=== PATIENT | female | born 1945 | race Two or more races ===

== ENCOUNTER 2017-10-23 12:19 | Outpatient (CLI) | payer OTHER | END 2017-10-23 12:32 | disposition home or self-care (01) | LOC: RAD 12:19 | DX: M54.2 Cervicalgia (principal); Z96.643 Presence of artificial hip joint, bilateral ==

== ENCOUNTER 2018-05-20 13:07 | Outpatient (CLI) | payer OTHER | END 2018-05-20 14:27 | disposition home or self-care (01) | LOC: RAD 13:07 | DX: S80.01XA Contusion of right knee, initial encounter (principal) ==

== ENCOUNTER 2018-07-08 15:28 | Outpatient (CLI) | payer OTHER | END 2018-07-08 15:35 | disposition home or self-care (01) | LOC: RAD 15:28 | DX: Z96.642 Presence of left artificial hip joint (principal) ==

== ENCOUNTER 2018-12-30 14:44 | Outpatient (CLI) | payer OTHER | END 2018-12-30 14:48 | disposition home or self-care (01) | LOC: RAD 14:44 | DX: M15.8 Other polyosteoarthritis (principal) ==

== ENCOUNTER 2019-09-04 11:04 | Outpatient (CLI) | payer OTHER | END 2019-09-04 11:13 | disposition home or self-care (01) | LOC: MAMO-SONO 11:04 | PROVIDERS: ATTEND Family Medicine | DX: Z12.31 Encounter for screening mammogram for malignant neoplasm of breast (principal); Z87.898 Personal history of other specified conditions; N60.11 Diffuse cystic mastopathy of right breast; N60.12 Diffuse cystic mastopathy of left breast ==

== ENCOUNTER 2019-09-04 13:21 | Outpatient (CLI) | payer OTHER | END 2019-09-04 13:38 | disposition home or self-care (01) | LOC: NUCLEAR 13:21 | PROVIDERS: ATTEND Family Medicine | DX: M81.0 Age-related osteoporosis without current pathological fracture (principal) ==

== ENCOUNTER 2020-04-17 09:26 | Outpatient (CLI) | payer OTHER | END 2020-04-17 12:00 | disposition home or self-care (01) | LOC: PPH VACUNA 09:26 | PROVIDERS: ATTEND Emergency Medicine Pediatric Emergency Medicine | DX: Z23 Encounter for immunization (principal) ==

== ENCOUNTER 2020-07-24 11:03 | Emergency (ER) | payer OTHER ==
[~2020-07-24] VITALS: Ht 167.6 cm; Wt 73.5 kg
[2020-07-24] MEDS ORDERED: TOPROL XL25 M1 (11:24)
[2020-07-24] MEDS ORDERED: AVALIDE 300-121 EACH (11:24)
== END 2020-07-24 13:22 | disposition home or self-care (01) ==
LOC: ER 11:03
DX: S00.03XA Contusion of scalp, initial encounter (principal); W01.198A Fall on same level from slipping, tripping and stumbling with subsequent striking against other object, initial encounter; Y93.89 Activity, other specified; Y92.018 Other place in single-family (private) house as the place of occurrence of the external cause; Y99.8 Other external cause status

== ENCOUNTER 2020-10-06 14:02 | Emergency (ER) | payer OTHER ==
[~2020-10-06] VITALS: Ht 167.6 cm; Wt 73.5 kg
[~2020-10-06 14:02] MED LIST: AVALIDE 300-121 EACH; TOPROL XL25 M1
== END 2020-10-06 19:26 | disposition home or self-care (01) ==
LOC: ER 14:02
DX: R55 Syncope and collapse (principal)

== ENCOUNTER 2020-12-09 08:00 | Outpatient (CLI) | payer OTHER | END 2020-12-09 08:30 | disposition home or self-care (01) | LOC: PPH VACUNA 08:00 | DX: Z23 Encounter for immunization (principal) ==

== ENCOUNTER 2021-01-06 16:10 | Outpatient (CLI) | payer OTHER | END 2021-01-06 16:21 | disposition home or self-care (01) | LOC: RAD 16:10 | PROVIDERS: ATTEND Family Medicine | DX: M41.87 Other forms of scoliosis, lumbosacral region (principal); M54.16 Radiculopathy, lumbar region ==

== ENCOUNTER 2021-03-11 15:04 | Outpatient (CLI) | payer OTHER | END 2021-03-11 15:11 | disposition home or self-care (01) | LOC: RAD 15:04 | PROVIDERS: ATTEND Physical Medicine & Rehabilitation | DX: M25.561 Pain in right knee (principal); M25.562 Pain in left knee ==

== ENCOUNTER 2021-08-23 12:00 | Outpatient (CLI) | payer OTHER | END 2021-08-23 12:30 | disposition home or self-care (01) | LOC: PPH VACUNA 12:00 | PROVIDERS: ATTEND Emergency Medicine Pediatric Emergency Medicine | DX: Z23 Encounter for immunization (principal) ==

== ENCOUNTER → 2021-08-23 13:43 | Outpatient (CLI) | payer OTHER | END | disposition home or self-care (01) | LOC: LAB 13:43 | PROVIDERS: ATTEND Radiology Diagnostic Radiology | DX: R10.13 Epigastric pain (principal) ==

== ENCOUNTER 2021-08-31 09:24 | Outpatient (CLI) | payer OTHER | END 2021-08-31 09:28 | disposition home or self-care (01) | LOC: TOM 09:24 | PROVIDERS: ATTEND Internal Medicine Gastroenterology | DX: R10.13 Epigastric pain (principal); R10.33 Periumbilical pain; R63.4 Abnormal weight loss | CPT/HCPCS: 74178; Q9965 ==

== ENCOUNTER 2021-09-26 13:15 | Outpatient (CLI) | payer OTHER | END 2021-09-26 13:23 | disposition home or self-care (01) | LOC: RAD 13:15 | PROVIDERS: ATTEND Psychiatry & Neurology Psychiatry | DX: J20.9 Acute bronchitis, unspecified (principal) ==

== ENCOUNTER 2021-12-23 14:31 | Outpatient (CLI) | payer OTHER | END 2021-12-23 14:36 | disposition home or self-care (01) | LOC: PPH VACUNA 14:31 | PROVIDERS: ATTEND Emergency Medicine Pediatric Emergency Medicine | DX: Z23 Encounter for immunization (principal) ==

== ENCOUNTER → 2022-08-18 | Outpatient (CLI) | payer OTHER | END | disposition home or self-care (01) | LOC: PPH VACUNA | PROVIDERS: ATTEND Emergency Medicine Pediatric Emergency Medicine | DX: Z23 Encounter for immunization (principal) ==

== ENCOUNTER 2022-12-05 14:58 | Outpatient (CLI) | payer OTHER | END 2022-12-05 15:08 | disposition home or self-care (01) | LOC: RAD 14:58 | PROVIDERS: ATTEND Internal Medicine Rheumatology | DX: M15.8 Other polyosteoarthritis (principal); M25.562 Pain in left knee; M25.561 Pain in right knee ==

== ENCOUNTER 2023-02-20 09:16 | Emergency (ER) | payer OTHER ==
[~2023-02-20] VITALS: Ht 165.1 cm; Wt 73.5 kg
[2023-02-20] MEDS ORDERED: IRBESARTAN-HCT1 EACH (09:33)
[2023-02-20] MEDS ORDERED: GABAPENTIN300 M2 (09:34)
[2023-02-20] MEDS ORDERED: LEVOTHYROXINE50 MCG (09:34)
[2023-02-20] MEDS ORDERED: REMINYL4 MG (09:34)
[2023-02-20 10:59] LABS: HEMATOCRIT 36.1 % (36.0-45.00); HEMOGLOBIN 12.2 g/dL (12.0-15.00); MEAN CELL VOLUME 92.4 fL (80.00-100.00); MEAN CORPUSCULAR HEMOGLOBIN 31.3 pg (27.00-32.0); MEAN CORPUSCULAR HGB CONC 33.8 g/dl (32.0-36.0); PLATELET COUNT 238 K/uL (150-450); RED CELL DISTRIBUTION WIDTH 13.9 % (11.5-14.5)
[2023-02-20 11:17] LABS: INR 0.97; PARTIAL THROMBOPLASTIN TIME 32.4 SECONDS (22.0-34.0); PROTHROMBIN TIME 10.2 SECONDS (9.0-11.5)
[2023-02-20 11:22] LABS: URINE APPEARANCE Clear; URINE BILIRRUBIN Negative (NEGATIVE); URINE BLOOD Negative; URINE COLOR Yellow; URINE GLUCOSE Negative (NEGATIVE); URINE LEUKOCYTE Negative; URINE NITRATE Negative; URINE PROTEIN Negative (NEGATIVE)
[2023-02-20 11:25] LABS: URINE BACTERIA 32.7 uL (0.0-1933); URINE EPITHELIAL CELLS 4.1 uL (0.0-38.8); URINE WBC 5.7 uL (0.0-23.2)
[2023-02-20 11:53] LABS: ALBUMIN 3.6 gm/dL (3.4-5.0); BILIRUBIN TOTAL 0.85 mg/dL (0.3-1.2); CREATININE SERUM 0.82 mg/dL (0.55-1.02); GFR 67.42; GLOBULINA 3.1 G/DL (2.4-3.5); TOTAL PROTEIN 6.7 gm/dL (6.4-8.2)
== END 2023-02-20 17:28 | disposition home or self-care (01) ==
LOC: ER 09:16
PROVIDERS: Emergency Medicine
DX: M94.0 Chondrocostal junction syndrome [Tietze] (principal); R07.89 Other chest pain; I10 Essential (primary) hypertension

== ENCOUNTER 2023-10-15 12:23 | Outpatient (CLI) | payer OTHER, BC ==
[~2023-10-15 12:23] MED LIST changes: +GABAPENTIN300 M2; +IRBESARTAN-HCT1 EACH; +LEVOTHYROXINE50 MCG; +NORVASC2.5 M1 PO; +REMINYL4 MG
== END 2023-10-15 12:28 | disposition home or self-care (01) ==
LOC: TOM 12:23
PROVIDERS: ATTEND Internal Medicine Gastroenterology
DX: S09.90XA Unspecified injury of head, initial encounter (principal); S19.9XXA Unspecified injury of neck, initial encounter

== ENCOUNTER 2023-10-19 10:23 | Outpatient (CLI) | payer OTHER, BC | END 2023-10-19 10:31 | disposition home or self-care (01) | LOC: SONOGRAMA 10:23 | PROVIDERS: ATTEND Internal Medicine Gastroenterology | DX: M75.82 Other shoulder lesions, left shoulder (principal); R16.0 Hepatomegaly, not elsewhere classified ==

== ENCOUNTER 2024-01-03 10:52 | Outpatient (CLI) | payer OTHER | END 2024-01-03 13:17 | disposition home or self-care (01) | LOC: RAD 10:52 | PROVIDERS: ATTEND Family Medicine | DX: S20.212A Contusion of left front wall of thorax, initial encounter (principal); S20.00XA Contusion of breast, unspecified breast, initial encounter ==

== ENCOUNTER 2024-01-15 13:16 | Outpatient (CLI) | payer OTHER | END 2024-01-15 13:18 | disposition home or self-care (01) | LOC: NUCLEAR 13:16 | PROVIDERS: ATTEND Family Medicine | DX: M81.0 Age-related osteoporosis without current pathological fracture (principal) ==

== ENCOUNTER 2024-04-11 10:44 | Outpatient (CLI) | payer OTHER | END 2024-04-11 10:52 | disposition home or self-care (01) | LOC: RAD 10:44 | PROVIDERS: ATTEND Internal Medicine Rheumatology | DX: M15.8 Other polyosteoarthritis (principal) ==

== ENCOUNTER 2024-07-29 10:03 | Outpatient (CLI) | payer OTHER ==
[~2024-07-29 10:03] MED LIST changes: +NABUMETONE500 MG PO
== END 2024-07-29 10:05 | disposition home or self-care (01) ==
LOC: RAD 10:03
PROVIDERS: ATTEND Physical Medicine & Rehabilitation
DX: M25.551 Pain in right hip (principal); M25.552 Pain in left hip